=== PATIENT | female | born 1975 | race Caucasian/White ===

== ENCOUNTER 2018-03-08 15:25 | Observation (INO) ==
[2018-03-08] MEDS ORDERED: 0.9 % Sodium Chloride 1,000 ML IVC ONE (15:55)
[2018-03-08] MEDS ORDERED: Aspirin 325 MG TABLET PO ONE (15:55)
--- NOTE | 2018-03-08 15:56 | Emergency Department Note ---
Disposition General Adult HPI - General Chief complaint: ED Arrhythmia/Palpitations Stated complaint: HHR Time Seen by Provider: 03/08/18 15:36 Source: patient Limitations: no limitations Nursing Notes Reviewed: Yes Vital Signs Reviewed: Yes - History of Present Illness Pain Scale: 6 Past Medical History - Past Medical History Medical history: Reports: other Psychiatric history: Reports: no psych history - Social History Smoking Status: Never smoker Alcohol use: Reports: none Drug use: Reports: none Physical Exam - General Limitations: no limitations General appearance: alert Course Vital Signs Temperature 98.0 F 03/08/18 15:28 Pulse Rate 137 03/08/18 15:28 Respiratory Rate 15 03/08/18 15:28 Blood Pressure 151/83 03/08/18 15:28 O2 Sat by Pulse Oximetry 96 03/08/18 15:28 Temperature 98.0 F 03/08/18 15:47 Pulse Rate 137 03/08/18 15:47 Respiratory Rate 15 03/08/18 15:47 Blood Pressure 139/93 03/08/18 15:47 O2 Sat by Pulse Oximetry 96 03/08/18 15:47 Oxygen Delivery Oxygen Delivery Room Air
--- NOTE | 2018-03-08 16:05 | Emergency Department Note ---
Disposition Clinical Impression: Palpitations, Sinus tachycardia, Hypokalemia Disposition: Admitted As Inpatient Condition: Good Time of Disposition: 18:35 General Adult HPI - General Chief complaint: ED Arrhythmia/Palpitations Stated complaint: HHR Time Seen by Provider: 03/08/18 15:36 Source: patient Limitations: no limitations Nursing Notes Reviewed: Yes Vital Signs Reviewed: Yes - History of Present Illness HPI Narrative: Female patient presenting to emergency department complaining of several year history of high heart rate. She had an ablation approximately 7 years ago and states that the heart rate has not come down since. She reports generalized malaise with this associated. So for the past 5 days she states that she has been feeling like her heart rate is elevated and that she is tired. She reports that she woke up this morning and had a left-sided chest pain. It did not wake her up. She also had associated nausea and diaphoresis. She went to work and was able to work throughout the day however started feeling worse so she was seen by her primary care physician and told to come to the emergency department. She states that she did try to eat food but this did not help with her nausea or her left-sided chest pain. Pain Scale: 6 - Related Data Home Medications Medication Instructions Recorded Confirmed Levothyroxine [Synthroid] 50 mcg PO 0630 03/08/18 03/08/18 Losartan/Hydrochlorothiazide 1 tab PO DAILY 03/08/18 03/08/18 [Losartan-Hctz 100-25 mg Tab] Spironolactone [Aldactone] 50 mg PO DAILY 03/08/18 03/08/18 clonazePAM [Clonazepam] 0.5 mg PO Q8H PRN 03/08/18 03/08/18 Allergies Allergy/AdvReac Type Severity Reaction Status Date / Time No Known Allergies Allergy Verified 03/08/18 18:04 All systems ED: reviewed and negative except as stated. Review of Systems: As Per HPI Constitutional: Denies: fever Cardiovascular: Reports: chest pain, palpitations. Denies: syncope Respiratory: Denies: cough Gastrointestinal: Reports: nausea. Denies: abdominal pain, vomiting, diarrhea, hematemesis, melena, hematochezia Genitourinary: Denies: urgency, dysuria, frequency, hematuria Musculoskeletal: Reports: back pain, other (low extremity edema) Integumentary: Denies: rash Neurological: Reports: weakness Past Medical History - Past Medical History Attestation: Yes The following information was validated with the patient. Source: patient Medical history: Reports: other Psychiatric history: Reports: no psych history - Social History Smoking Status: Never smoker Alcohol use: Reports: none Drug use: Reports: none Physical Exam - General Limitations: no limitations General appearance: alert, in no apparent distress - Head Head exam: atraumatic, normocephalic, normal inspection - Eye Eye exam: Present: normal appearance, PERRL, EOMI - ENT ENT exam: normal exam, normal oropharynx, mucous membranes moist - Neck Neck exam: Present: normal inspection, full ROM, trachea midline - Chest Chest inspection: Present: normal inspection, symmetric chest wall rise - Respiratory Respiratory exam: Present: normal lung sounds bilaterally. Absent: respiratory distress, accessory muscle use - Cardiovascular Cardiovascular exam: Present: regular rate, normal rhythm, normal heart sounds - Abdominal Exam Abdominal exam: Present: soft, Non-Tender. Absent: tenderness, distention, guarding, rebound, rigidity, organomegaly, Santiago's sign, Rovsing's sign, tenderness at McBurney's Point - Extremities Exam Extremities exam: Present: normal inspection, full ROM, pedal edema (mild pitting to ankles). Absent: tenderness - Back Exam Back exam: Present: normal inspection, full ROM. Absent: tenderness - Neurological Exam Neurological exam: Present: alert, oriented X3 - Psychiatric Psychiatric exam: Present: normal affect, normal mood - Skin Skin exam: Present: warm, dry, intact, normal color Course Course Narrative: Patient well-appearing but states that she has been seen by several physicians with no reason for her tachycardia since she had the ablation. States that she frequently runs in the 130s. She reports that this is intermittent. Has been present for about a week now. We will get this morning with left-sided chest pain. Describes it as an ache. Has associated nausea and diaphoresis with this. Sought treatment here after being seen by her primary care physician in [place]. Lung sounds are clear heart tones are tachycardic abdomen is soft nontender. She did respond appropriately to a liter of fluid and her heart rate came down to the 80s. She was found to be hypokalemic. We will replace that. Mag level is normal. We will admit patient to the hospital for the hypokalemic kalemia at this time. She states that her chest pain is almost completely resolved but still does have a dull ache. She states that she is beginning to feel better as well. - Consultations Consultation #1: I discussed patient with Dr. Bennett who accepted patient in stable condition. Time: 17:43 Vital Signs Temperature 98.0 F 03/08/18 15:28 Pulse Rate 137 03/08/18 15:28 Respiratory Rate 15 03/08/18 15:28 Blood Pressure 151/83 03/08/18 15:28 O2 Sat by Pulse Oximetry 96 03/08/18 15:28 Temperature 97.5 F L 03/08/18 20:13 Pulse Rate 74 03/08/18 20:13 Respiratory Rate 16 03/08/18 20:13 Blood Pressure 121/77 03/08/18 20:13 O2 Sat by Pulse Oximetry 96 03/08/18 20:13 Oxygen Delivery Oxygen Delivery Room Air Medical Decision Making - Medical Records Medical records reviewed: Yes I reviewed the patient's medical records. - Lab Data Lab results reviewed: Yes I reviewed the patient's lab results. Result diagrams: 03/08/18 15:50 03/08/18 15:50 Lab Results 03/08/18 03/08/18 03/08/18 Range/Units 15:50 15:50 15:50 WBC 12.7 H (4.3-11.1) K/mcL RBC 4.63 (3.82-4.97) M/mcL Hgb 14.4 (11.5-15.4) g/dL Hct 40.3 (35.3-44.9) % MCV 87.0 (83.0-100.0) fL MCH 31.1 (28.0-33.3) pg MCHC 35.7 H (31.6-35.5) g/dL RDW 13.2 (11.5-14.5) % Plt Count 295 (140-400) K/mcL MPV 10.6 (9.4-12.4) fL Immature Gran % 0.3 (0-4) % Seg Neutrophils % 65.4 % Lymphocytes % 26.7 % Monocytes % 6.3 % Eosinophils % 0.9 % Basophils % 0.4 % Neutrophils # 8.3 (1.6-8.9) K/mcL Lymphocytes # 3.4 (0.6-4.6) K/mcL Monocytes # 0.8 (0.0-1.3) K/mcL Eosinophils # 0.1 (0.0-0.6) K/mcL Basophils # 0.1 (0.0-0.2) K/mcL Sodium 136 (136-145) mEq/L Potassium 2.5 L* (3.5-5.1) mEq/L Chloride 97 L (98-107) mEq/L Carbon Dioxide 29 (23-29) mEq/L BUN 17 (6-20) mg/dL Creatinine 0.86 (0.60-1.20) mg/dL Est GFR ( Amer) > 60 (> 60) Est GFR (Non-Af Amer) > 60 (> 60) BUN/Creatinine Ratio 20 (6-26) Glucose 123 H (70-105) mg/dL Calculated Osmolality 285 (280-300) Calcium 9.9 (8.6-10.3) mg/dL Magnesium 1.6 (1.6-2.6) mg/dL Troponin I < 0.03 (< 0.04) ng/mL B-Natriuretic Peptide 12 (Less than 100) pg/mL TSH 3.370 (0.340-5.600) mcIU/mL Urine Color (Yellow) Urine Clarity (Clear) Urine pH (5.0-8.0) pH Units Ur Specific [place] (1.010-1.025) Urine Protein (Neg-Trace) mg/dL Urine Glucose (UA) (Normal) mg/dL Urine Ketones (Negative) mg/dL Urine Blood (Negative) Urine Nitrite (Negative) Urine Bilirubin (Negative) Urine Urobilinogen (Normal) mg/dL Ur Leukocyte Esterase (Negative) Ur Culture Indicated? (NO) Urine Test (Negative) 03/08/18 03/08/18 Range/Units 17:05 17:05 WBC (4.3-11.1) K/mcL RBC (3.82-4.97) M/mcL Hgb (11.5-15.4) g/dL Hct (35.3-44.9) % MCV (83.0-100.0) fL MCH (28.0-33.3) pg MCHC (31.6-35.5) g/dL RDW (11.5-14.5) % Plt Count (140-400) K/mcL MPV (9.4-12.4) fL Immature Gran % (0-4) % Seg Neutrophils % % Lymphocytes % % Monocytes % % Eosinophils % % Basophils % % Neutrophils # (1.6-8.9) K/mcL Lymphocytes # (0.6-4.6) K/mcL Monocytes # (0.0-1.3) K/mcL Eosinophils # (0.0-0.6) K/mcL Basophils # (0.0-0.2) K/mcL Sodium (136-145) mEq/L Potassium (3.5-5.1) mEq/L Chloride (98-107) mEq/L Carbon Dioxide (23-29) mEq/L BUN (6-20) mg/dL Creatinine (0.60-1.20) mg/dL Est GFR ( Amer) (> 60) Est GFR (Non-Af Amer) (> 60) BUN/Creatinine Ratio (6-26) Glucose (70-105) mg/dL Calculated Osmolality (280-300) Calcium (8.6-10.3) mg/dL Magnesium (1.6-2.6) mg/dL Troponin I (< 0.04) ng/mL B-Natriuretic Peptide (Less than 100) pg/mL TSH (0.340-5.600) mcIU/mL Urine Color Yellow (Yellow) Urine Clarity Clear (Clear) Urine pH 6.0 (5.0-8.0) pH Units Ur Specific [place] 1.010 (1.010-1.025) Urine Protein Negative (Neg-Trace) mg/dL Urine Glucose (UA) Normal (Normal) mg/dL Urine Ketones Negative (Negative) mg/dL Urine Blood Negative (Negative) Urine Nitrite Negative (Negative) Urine Bilirubin Negative (Negative) Urine Urobilinogen Normal (Normal) mg/dL Ur Leukocyte Esterase Negative (Negative) Ur Culture Indicated? NO (NO) Urine Test Negative (Negative) - Radiology Data Radiology results reviewed: Yes I reviewed the patient's radiology results. Chest X-Ray 03/08/18 15:55 IMPRESSION: Low lung volumes with mild bibasilar atelectasis. D/ / Erin Al MD / Erin Al MD Interpreting Provider: Erin Al MD - EKG Data EKG #1 EKG attestation: Yes I reviewed and interpreted this EKG. EKG results narrative: Sinus tachycardia at a rate of 118. TN interval is 137. QRS duration is 87. QT is 337. QTC is 478. No signs of acute ischemia. No signs of the pretibial regatta. No previous EKG to compare to.
[2018-03-08 16:08] LABS: Basophils # 0.1 K/mcL (0.0-0.2); Basophils % 0.4 %; Eosinophils # 0.1 K/mcL (0.0-0.6); Eosinophils % 0.9 %; Hematocrit 40.3 % (35.3-44.9); Hemoglobin 14.4 g/dL (11.5-15.4); Immature Granulocytes % 0.3 % (0-4); Lymphocytes # 3.4 K/mcL (0.6-4.6); Lymphocytes % 26.7 %; Mean Corpuscular HGB Conc 35.7 g/dL (31.6-35.5); Mean Corpuscular Hemoglobin 31.1 pg (28.0-33.3); Mean Platelet Volume 10.6 fL (9.4-12.4); Monocytes # 0.8 K/mcL (0.0-1.3); Monocytes % 6.3 %; Neutrophils # 8.3 K/mcL (1.6-8.9); Platelet Count 295 K/mcL (140-400); Red Blood Count 4.63 M/mcL (3.82-4.97); Red Cell Distribution Width 13.2 % (11.5-14.5); Segmented Neutrophils % 65.4 %
--- NOTE | 2018-03-08 16:17 | Emergency Department Note ---
Disposition Clinical Impression: Palpitations, Sinus tachycardia, Hypokalemia Disposition: Admitted As Inpatient Condition: Fair Referrals: NONE,PCP [Primary Care Provider] - Forms: ED Satisfaction Letter Time of Disposition: 17:48 General Adult HPI - General Chief complaint: ED Arrhythmia/Palpitations Stated complaint: HHR Time Seen by Provider: 03/08/18 15:36 Source: patient Limitations: no limitations - History of Present Illness Pain Scale: 6 Past Medical History - Past Medical History Medical history: Reports: other Psychiatric history: Reports: no psych history - Social History Smoking Status: Never smoker Alcohol use: Reports: none Drug use: Reports: none Physical Exam - General Limitations: no limitations General appearance: alert Course Vital Signs Temperature 98.0 F 03/08/18 15:28 Pulse Rate 137 03/08/18 15:28 Respiratory Rate 15 03/08/18 15:28 Blood Pressure 151/83 03/08/18 15:28 O2 Sat by Pulse Oximetry 96 03/08/18 15:28 Temperature 98.0 F 03/08/18 15:47 Pulse Rate 93 03/08/18 17:16 Respiratory Rate 16 03/08/18 17:16 Blood Pressure 135/93 03/08/18 17:16 O2 Sat by Pulse Oximetry 98 03/08/18 17:16 Oxygen Delivery Oxygen Delivery Room Air Medical Decision Making - Lab Data Result diagrams: 03/08/18 15:50 03/08/18 15:50 Lab Results 03/08/18 03/08/18 03/08/18 Range/Units 15:50 15:50 15:50 WBC 12.7 H (4.3-11.1) K/mcL RBC 4.63 (3.82-4.97) M/mcL Hgb 14.4 (11.5-15.4) g/dL Hct 40.3 (35.3-44.9) % MCV 87.0 (83.0-100.0) fL MCH 31.1 (28.0-33.3) pg MCHC 35.7 H (31.6-35.5) g/dL RDW 13.2 (11.5-14.5) % Plt Count 295 (140-400) K/mcL MPV 10.6 (9.4-12.4) fL Immature Gran % 0.3 (0-4) % Seg Neutrophils % 65.4 % Lymphocytes % 26.7 % Monocytes % 6.3 % Eosinophils % 0.9 % Basophils % 0.4 % Neutrophils # 8.3 (1.6-8.9) K/mcL Lymphocytes # 3.4 (0.6-4.6) K/mcL Monocytes # 0.8 (0.0-1.3) K/mcL Eosinophils # 0.1 (0.0-0.6) K/mcL Basophils # 0.1 (0.0-0.2) K/mcL Sodium 136 (136-145) mEq/L Potassium 2.5 L* (3.5-5.1) mEq/L Chloride 97 L (98-107) mEq/L Carbon Dioxide 29 (23-29) mEq/L BUN 17 (6-20) mg/dL Creatinine 0.86 (0.60-1.20) mg/dL Est GFR ( Amer) > 60 (> 60) Est GFR (Non-Af Amer) > 60 (> 60) BUN/Creatinine Ratio 20 (6-26) Glucose 123 H (70-105) mg/dL Calculated Osmolality 285 (280-300) Calcium 9.9 (8.6-10.3) mg/dL Magnesium 1.6 (1.6-2.6) mg/dL Troponin I < 0.03 (< 0.04) ng/mL B-Natriuretic Peptide 12 (Less than 100) pg/mL TSH 3.370 (0.340-5.600) mcIU/mL Urine Color (Yellow) Urine Clarity (Clear) Urine pH (5.0-8.0) pH Units Ur Specific [place] (1.010-1.025) Urine Protein (Neg-Trace) mg/dL Urine Glucose (UA) (Normal) mg/dL Urine Ketones (Negative) mg/dL Urine Blood (Negative) Urine Nitrite (Negative) Urine Bilirubin (Negative) Urine Urobilinogen (Normal) mg/dL Ur Leukocyte Esterase (Negative) Ur Culture Indicated? (NO) Urine Test (Negative) 03/08/18 03/08/18 Range/Units 17:05 17:05 WBC (4.3-11.1) K/mcL RBC (3.82-4.97) M/mcL Hgb (11.5-15.4) g/dL Hct (35.3-44.9) % MCV (83.0-100.0) fL MCH (28.0-33.3) pg MCHC (31.6-35.5) g/dL RDW (11.5-14.5) % Plt Count (140-400) K/mcL MPV (9.4-12.4) fL Immature Gran % (0-4) % Seg Neutrophils % % Lymphocytes % % Monocytes % % Eosinophils % % Basophils % % Neutrophils # (1.6-8.9) K/mcL Lymphocytes # (0.6-4.6) K/mcL Monocytes # (0.0-1.3) K/mcL Eosinophils # (0.0-0.6) K/mcL Basophils # (0.0-0.2) K/mcL Sodium (136-145) mEq/L Potassium (3.5-5.1) mEq/L Chloride (98-107) mEq/L Carbon Dioxide (23-29) mEq/L BUN (6-20) mg/dL Creatinine (0.60-1.20) mg/dL Est GFR ( Amer) (> 60) Est GFR (Non-Af Amer) (> 60) BUN/Creatinine Ratio (6-26) Glucose (70-105) mg/dL Calculated Osmolality (280-300) Calcium (8.6-10.3) mg/dL Magnesium (1.6-2.6) mg/dL Troponin I (< 0.04) ng/mL B-Natriuretic Peptide (Less than 100) pg/mL TSH (0.340-5.600) mcIU/mL Urine Color Yellow (Yellow) Urine Clarity Clear (Clear) Urine pH 6.0 (5.0-8.0) pH Units Ur Specific [place] 1.010 (1.010-1.025) Urine Protein Negative (Neg-Trace) mg/dL Urine Glucose (UA) Normal (Normal) mg/dL Urine Ketones Negative (Negative) mg/dL Urine Blood Negative (Negative) Urine Nitrite Negative (Negative) Urine Bilirubin Negative (Negative) Urine Urobilinogen Normal (Normal) mg/dL Ur Leukocyte Esterase Negative (Negative) Ur Culture Indicated? NO (NO) Urine Test Negative (Negative) Attestation Statement - Attestation Attestation: I examined this patient and my medical decision-making was reviewed with the Resident Physician. I agree with the documented findings, disposition and treatment plan as described except to the extent set forth below. Patient presents to emergency department with a chief complaint of a high heart rate. Patient states she has not felt well today. Her heart rate was 130s. They checked her blood pressure at work and her systolic was in the 180s. She went to see her primary doctor who recommended her to go to the ER to be monitored. Patient states she has been having some discomfort in her chest and her back. States it radiates from her back downward. Nauseated. Patient has no cardiac history. She has seen a safety physician in the past for a high heart rate and was told it was "normal." Patient has had a hysterectomy but still has one ovary. On examination she is laying in bed in no acute distress. Heart mildly tachycardic in the low 100s. Lungs clear. Abdomen soft nontender. No peripheral edema. Plan. The patient's labs come back with potassium of 2.5. Troponin negative. We will replace potassium. Admitted for further potassium replenishment and cardiac workup. Chest X-Ray 03/08/18 15:55 IMPRESSION: Low lung volumes with mild bibasilar atelectasis. D/ / Erin Al MD / Erin Al MD Interpreting Provider: Erin Al MD
[2018-03-08 16:51] LABS: BUN/Creatinine Ratio 20 (6-26); Blood Urea Nitrogen 17 mg/dL (6-20); Calcium 9.9 mg/dL (8.6-10.3); Carbon Dioxide 29 mEq/L (23-29); Chloride 97 mEq/L (98-107); Glucose 123 mg/dL (70-105); Osmolality,Calculated 285 (280-300); Potassium 2.5 mEq/L (3.5-5.1); Sodium 136 mEq/L (136-145); Troponin I < 0.03 ng/mL (< 0.04); eGFR For Non-African Americans > 60 (> 60)
[2018-03-08] MEDS ORDERED: Ondansetron 4 MG/2 ML VIAL IVP ONE (16:51)
[2018-03-08] MEDS ORDERED: Potassium Chloride 40 MEQ, Lidocaine 1% 2 ML in D5% in Water 500 ML IVPB ONE (16:52)
[2018-03-08 17:22] LABS: Bilirubin,Urine Negative (Negative); Blood,Urine Negative (Negative); Clarity,Urine Clear (Clear); Color,Urine Yellow (Yellow); Glucose,Urine (UA) Normal (Normal); Ketones,Urine Negative (Negative); Leukocyte Esterase,Urine Negative (Negative); Nitrite,Urine Negative (Negative); Protein,Urine Negative (Neg-Trace); Urobilinogen,Urine Normal (Normal)
[2018-03-08 17:29] LABS: Magnesium 1.6 mg/dL (1.6-2.6)
[2018-03-08] MEDS ORDERED: 0.9 % Sodium Chloride 1,000 ML IVC SCH (18:00)
[2018-03-08] MEDS ORDERED: 0.9 % Sodium Chloride 1,000 ML ONE (18:01)
[2018-03-08] MEDS ORDERED: Naloxone 0.4 MG/ML INJ IVP PRN (18:25)
--- NOTE | 2018-03-08 18:48 | Internal Med History&Physical ---
Date of Encounter: 03/08/18 Time of Encounter: 18:00 Internal Medicine - H&P: HPI Chief complaint: Tachycardia Admitted From: Home Plans for Post Hospital Care: Home History of present illness: Ms. Mustafa is a 42 year old female with past medical history significant for SVT with ablation 7-8 years ago, hypertension, hypothyroidism, and anxiety who presents for elevated heart rate and blood pressure that started this past weekend. Heart rate reported as high as 150 and systolic blood pressure as high as 176 at home. Also developed nausea yesterday with no vomiting. Then developed dull chest pain radiating to her back today with diaphoresis. Has had intermittent tachycardia since ablation and has been seen by different cardiology groups and they have been unable to identify the cause. States when she becomes tachycardic it usually resolves in a day or two and doesn't persist like it has this occurrence. Denies any current treatment. No exacerbating or alleviating factors. ER reported EKG of sinus tachycardia. States symptoms have improved since coming to ER and receiving fluids and zofran, including chest pain that has nearly completely resolved. Discussed patient with Dr Bennett. Past Med Surg Social Fam HX - Past Medical History Medical history: hypertension, SVT, other Additional medical history: cardiac issues, high HR, hypothyroidism Psychiatric history: no psych history, anxiety - Past Surgical History Surgical History: cholecystectomy, hysterectomy Additional surgical history: ablation, appendectomy - Social History Smoking Status: Never smoker Alcohol use: none Drug use: none Internal Medicine - H&P: Meds Levothyroxine [Synthroid] 50 mcg PO 0630 03/08/18 [History] Losartan/Hydrochlorothiazide [Losartan-Hctz 100-25 mg Tab] 1 tab PO DAILY [History] Spironolactone [Aldactone] 50 mg PO DAILY 03/08/18 [History] clonazePAM [Clonazepam] 0.5 mg PO Q8H PRN 03/08/18 [History] 3 Allergy/AdvReac Type Severity Reaction Status Date / Time No Known Allergies Allergy Verified 03/08/18 18:04 All Systems PM: A 10-system review of systems was performed and is negative for pertinent findings except as documented above in the HPI. - Constitutional Vitals: Temp Pulse Resp BP Pulse Ox 98.0 F 88 16 141/92 99 03/08/18 15:47 03/08/18 17:53 03/08/18 17:53 03/08/18 17:53 03/08/18 17:53 Exam: General: Alert and oriented. Skin:Normal color, no rash, no lesions. HEENT:EOM, pupils equal, round and reactive. Cardiovascular:Heart sounds distant. Normal S1 & S2, no rubs, murmurs or gallops. No JVD. Pulse regular. Lungs:Normal breath sounds, no wheezes or crackles. Abdomen:Soft, non-tender, no rigidity. Extremities:No deformity, tenderness, or clubbing. Non pitting edema noted to bilateral lower extremities. Neurological:Normal cognition and motor skills. Pulses:Carotid and radial pulses normal +2. Rest of the physical exam is non contributory. Internal Med - H&P Results - Labs CBC & Chem 7: 03/08/18 15:50 03/08/18 15:50 Labs: Short CBC 03/08/18 Range/Units 15:50 WBC 12.7 H (4.3-11.1) K/mcL Hgb 14.4 (11.5-15.4) g/dL Hct 40.3 (35.3-44.9) % Plt Count 295 (140-400) K/mcL Neutrophils # 8.3 (1.6-8.9) K/mcL BMP 03/08/18 15:50 Sodium 136 Potassium 2.5 L* Chloride 97 L Carbon Dioxide 29 BUN 17 Creatinine 0.86 Glucose 123 H Calcium 9.9 Cardiac Enzymes 03/08/18 Range/Units 15:50 Troponin I < 0.03 (< 0.04) ng/mL Urine 03/08/18 Range/Units 17:05 Urine Color Yellow (Yellow) Urine Clarity Clear (Clear) Urine pH 6.0 (5.0-8.0) pH Units Ur Specific [place] 1.010 (1.010-1.025) Urine Protein Negative (Neg-Trace) mg/dL Urine Glucose (UA) Normal (Normal) mg/dL - Impressions ITS Impressions Chest X-Ray 03/08/18 15:55 IMPRESSION: Low lung volumes with mild bibasilar atelectasis. D/ / Erin Al MD / Erin Al MD Interpreting Provider: Erin Al MD - Assessment and plan (1) Hypokalemia Current Visit: Yes Status: Acute Assessment and plan: IV replacement started in ER. Repeat potassium level 03/09/2018 at 0200. Continuos property assessment monitor. (2) Chest pain Current Visit: Yes Status: Acute Assessment and plan: Continuous property assessment monitor. Initial troponin in ER negative, serial troponins ordered. Qualifiers: Chest pain type: unspecified Qualified Code(s): R07.9 - Chest pain, unspecified (3) Nausea Current Visit: Yes Status: Acute Assessment and plan: Zofran as needed. Encourage oral intake. (4) Increased white blood cell count Current Visit: Yes Status: Acute Assessment and plan: No identified source of infection. Repeat labs in a.m. Qualifiers: Leukocytosis type: unspecified Qualified Code(s): D72.829 - Elevated white blood cell count, unspecified (5) Hypertension Current Visit: Yes Status: Chronic Assessment and plan: Continue home medications. Cardiac diet. Qualifiers: Hypertension type: essential hypertension Qualified Code(s): I10 - Essential (primary) hypertension - Time Spent With Patient Total time spent is greater than 50% in coordination of care (as documented) at patient's floor/unit and/or counseling patient:
[2018-03-08] MEDS ORDERED: clonazePAM 0.5 MG TABLET PO PRN (19:03)
[2018-03-08] MEDS ORDERED: Ondansetron 4 MG/2 ML VIAL IVP PRN (23:00)
[2018-03-09 04:21] LABS: Basophils % 0.2 %; Eosinophils # 0.1 K/mcL (0.0-0.6); Eosinophils % 1.3 %; Hematocrit 35.4 % (35.3-44.9); Immature Granulocytes % 0.2 % (0-4); Lymphocytes # 2.8 K/mcL (0.6-4.6); Lymphocytes % 32.7 %; Mean Corpuscular Hemoglobin 31.3 pg (28.0-33.3); Mean Corpuscular Volume 89.4 fL (83.0-100.0); Mean Platelet Volume 10.8 fL (9.4-12.4); Monocytes # 0.6 K/mcL (0.0-1.3); Monocytes % 7.2 %; Platelet Count 232 K/mcL (140-400); Red Blood Count 3.96 M/mcL (3.82-4.97); Red Cell Distribution Width 13.1 % (11.5-14.5); Segmented Neutrophils % 58.4 %
[2018-03-09 04:25] LABS: Hemoglobin 12.4 g/dL (11.5-15.4)
[2018-03-09 04:41] LABS: BUN/Creatinine Ratio 20 (6-26); Blood Urea Nitrogen 15 mg/dL (6-20); Calcium 8.4 mg/dL (8.6-10.3); Carbon Dioxide 28 mEq/L (23-29); Chloride 103 mEq/L (98-107); Glucose 107 mg/dL (70-105); Osmolality,Calculated 287 (280-300); Potassium 2.9 mEq/L (3.5-5.1); Sodium 138 mEq/L (136-145); eGFR For Non-African Americans > 60 (> 60)
[2018-03-09] MEDS ORDERED: Acetaminophen 325 MG TABLET PO PRN (05:27)
[2018-03-09] MEDS ORDERED: *HR* Enoxaparin 40 MG/0.4 ML SYRINGE SQ SCH (06:00)
[2018-03-09] MEDS ORDERED: Losartan/HCTZ 50-12.5 TABLET PO SCH (09:00)
--- NOTE | 2018-03-09 11:03 | Discharge Summary ---
- NOTES TO OUTPATIENT PROVIDER Notes to Outpatient Provider: f/u with PCP within a week,. f/u with cardiology within a week. Date of Encounter: 03/09/18 Time of Encounter: 10:57 - Discharge Diagnosis (1) Hypokalemia Priority: Primary Status: Acute (2) Chest pain Priority: Primary Status: Acute Qualifiers: Chest pain type: unspecified Qualified Code(s): R07.9 - Chest pain, unspecified (3) Nausea Priority: Primary Status: Acute (4) Increased white blood cell count Priority: Primary Status: Resolved Qualifiers: Leukocytosis type: unspecified Qualified Code(s): D72.829 - Elevated white blood cell count, unspecified (5) Hypertension Priority: Secondary Status: Chronic Qualifiers: Hypertension type: essential hypertension Qualified Code(s): I10 - Essential (primary) hypertension Hospital course: Ms. Mustafa is a 42 year old female with past medical history significant for SVT with ablation 7-8 years ago, hypertension, hypothyroidism, and anxiety who presents for elevated heart rate and blood pressure that started this past weekend. Heart rate reported as high as 150 and systolic blood pressure as high as 176 at home. Also developed nausea yesterday with no vomiting. Then developed dull chest pain radiating to her back today with diaphoresis. Has had intermittent tachycardia since ablation and has been seen by different cardiology groups and they have been unable to identify the cause. States when she becomes tachycardic it usually resolves in a day or two and doesn't persist like it has this occurrence. Denies any current treatment. No exacerbating or alleviating factors. ER reported EKG of sinus tachycardia. States symptoms have improved since coming to ER and receiving fluids and zofran, including chest pain that has nearly completely resolved. Patient vital signs has been stable, further workup showed normal troponin and TSH, normal EKG without acute ST-T change, normal telemetry monitoring without SVT. Potassium was low and was replaced. Patient chest pain, abdominal Pain, nausea, and vomiting abated after treatment. Patient will be discharged home and continue to follow up with cardiology and PCP. Discharge discussed with: patient, family Time spent discussing smoking cessation with patient: more than 10 minutes - Time Spent with Patient Total time spent providing and/or coordinating discharge services: Greater than 30 minutes - Discharge Medications Prescriptions: Ondansetron HCl [Zofran] 4 mg PO Q8HR PRN #10 tab PRN Reason: Nausea And Vomiting Potassium Chloride 20 meq PO DAILY #3 tab.er.prt Home Medications: Levothyroxine [Synthroid] 50 mcg PO 0630 03/08/18 [History] Losartan/Hydrochlorothiazide [Losartan-Hctz 100-25 mg Tab] 1 tab PO DAILY [History] Spironolactone [Aldactone] 50 mg PO DAILY 03/08/18 [History] clonazePAM [Clonazepam] 0.5 mg PO Q8H PRN 03/08/18 [History] Ondansetron HCl [Zofran] 4 mg PO Q8HR PRN #10 tab 03/09/18 [Rx] Potassium Chloride 20 meq PO DAILY #3 tab.er.prt 03/09/18 [Rx] Allergies/Adverse Reactions: 3 Allergy/AdvReac Type Severity Reaction Status Date / Time No Known Allergies Allergy Verified 03/09/18 11:32 Date of admission: 03/08/18 18:36 Primary care physician: PCP NONE Anticipated date of discharge: 03/09/18 - Constitutional Vitals: Temp Pulse Resp BP Pulse Ox 97.5 F L 69 18 114/64 96 03/09/18 07:11 03/09/18 07:11 03/09/18 07:11 03/09/18 07:11 03/09/18 07:11 General appearance: Present: cooperative, A&O X 3, answers questions appropriately Exam: PHYSICAL EXAMINATION: GENERAL APPEARANCE: The patient is alert, oriented and in no acute distress. HEENT: Head is normocephalic. The sinuses are nontender. Pupils are equal and reactive. The nares are patent. Oropharynx clear without lesions. NECK: Supple without lymphadenopathy. HEART: Regular rate and rhythm. LUNGS: No crackles or wheezes are heard. ABDOMEN: Soft, nontender, nondistended with good bowel sounds heard. Inguinal area is normal. EXTREMITIES: Without cyanosis, clubbing or edema. NEUROLOGICAL: Gross nonfocal. SKIN: Warm and dry without any rash. - Patient Status Disposition: Home, Self-Care Condition: Good Functional capacity at discharge: independent ambulation Overall status at discharge: patient is back to baseline - Discharge Instructions Instructions: Potassium Supplement (By mouth), Ondansetron (By mouth), Potassium Content of Foods List (DC), Potassium Content of Foods List (GEN), Hypokalemia (DC), Hypokalemia (GEN) Follow Up With: [facility] [place] [Provider Group] NONE,PCP [Primary Care Provider] - (Please follow up with Dr. Lamas within 1 week. ) Additional Instructions: Apollo Lamas (Giacomo Blayne): 03/15/2018 @ 2:30PM - Diet and Activity Activity: increase activity as tolerated Diet: regular diet
[2018-03-09 11:38] VITALS: BP 102/62
--- NOTE | 2018-03-09 17:11 | Electrocardiograph Report ---
[address] [place], [place] [address] Test Date: 2018-03-08 Pat Name: Sabiha Mustafa Department: EXAM10 Room: 3B37 Gender: F Highway Design Engineer: : 1975 Requested By: Yola Bennett Order Number: [id number] Reading MD: Riana Kidd Measurements Intervals [place] Rate: 118 P: 46 [place]: 137 QRS: -42 QRSD: 87 T: 22 QT: 337 QTc: 473 Interpretive Statements Sinus tachycardia Probable left atrial enlargement Inferior infarct, old Electronically Signed On 03-09-2018 17:10:05 EDT by Riana Kidd
== END 2018-03-09 11:50 | disposition home or self-care (01) ==
LOC: EMEROOARM 15:25 → 3BNU 15:25 → MERGE 18:36 → 3BNU 19:58
PROVIDERS: ADMIT Internal Medicine; ATTEND Internal Medicine